=== PATIENT | female | born 1990 | race Hispanic/Latino ===

== ENCOUNTER 2017-12-07 19:34 | Emergency (ER) | payer OTHER, SELFPAY ==
[2017-12-07] MEDS ORDERED: Ketorolac Tromethamine 30 MG/ML VIAL ONE (21:15)
== END 2017-12-07 21:48 | disposition home or self-care (01) ==
LOC: ERS 19:34
DX: S16.1XXA Strain of muscle, fascia and tendon at neck level, initial encounter (principal); J06.9 Acute upper respiratory infection, unspecified; E66.9 Obesity, unspecified; F32.9 Major depressive disorder, single episode, unspecified; Z79.899 Other long term (current) drug therapy; X58.XXXA Exposure to other specified factors, initial encounter
CPT/HCPCS: 87081; 87430; 87804; 96372; J1885

== ENCOUNTER 2018-09-02 20:33 | Emergency (ER) | payer SELFPAY ==
[2018-09-02] MEDS ORDERED: predniSONE 20 MG TAB ONE (21:50)
== END 2018-09-02 22:00 | disposition home or self-care (01) ==
LOC: ERS 20:33
DX: T78.40XA Allergy, unspecified, initial encounter (principal); F32.9 Major depressive disorder, single episode, unspecified; Z79.01 Long term (current) use of anticoagulants
CPT/HCPCS: 99283; J7506

== ENCOUNTER 2018-12-07 15:45 | Emergency (ER) | payer SELFPAY ==
[~2018-12-07 15:45] MED LIST: ISOVUE-370 76%-LOCM 1 ML ONE
[2018-12-07 16:27] LABS: #Basophils 0.1 thou/uL (0.0-0.2); #Eosinphils 0.3 thou/uL (0.0-0.7); #Lymphocytes 2.9 thou/uL (1.20-3.40); #Monocytes 0.9 thou/uL (0.11-0.59); #Neutrophils 9.1 thou/uL (1.40-6.50); %Basophils 0.9 % (0.0-1.0); %Eosinophils 2.4 % (0.0-10.0); %Lymphocytes 21.5 % (21.0-51.0); %Monocytes 6.9 % (0.0-10.0); %Neutrophils 68.3 % (42.0-75.0); Hemoglobin 15.7 g/dL (12.0-16.0); Mean Corpuscular HGB CONC 33.5 g/dL (32.0-36.0); Mean Corpuscular Hemoglobin 29.6 pg (27.0-31.0); Mean Corpuscular Volume 88.3 fL (78.0-98.0); Mean Platelet Volume 7.8 fL (7.4-10.4); Platelet Count 271 thou/uL (130-400); RBC Distribution Width 12.2 % (11.5-14.5); Red Blood Cell (RBC) Count 5.32 mill/uL (4.20-5.40); White Blood Cell (WBC) Count 13.3 thou/uL (4.8-10.8)
[2018-12-07 16:48] LABS: ALT (SGPT) 36 U/L (8-55); AST (SGOT) 19 U/L (5-34); Albumin 4.3 g/dL (3.5-5.0); Alkaline Phosphatase 72 U/L (40-150); Anion Gap 15 mmol/L (10-20); BUN (Urea Nitrogen) 14 mg/dL (7.0-18.7); Bilirubin, Total 0.4 mg/dL (0.2-1.2); Calc. Creatinine Clearance 0 mL/min (70-130); Calcium 10.4 mg/dL (7.8-10.44); Carbon Dioxide 23 mmol/L (22-29); Chloride 102 mmol/L (98-107); Estimated GFR-MDRD 86; Globulin 3.5 g/dL (2.4-3.5); Glucose 91 mg/dL (70-105); Lipase 6 U/L (8-78); Potassium 3.7 mmol/L (3.5-5.1); Protein, Total 7.8 g/dL (6.0-8.3); Sodium 136 mmol/L (136-145)
[2018-12-07 20:07] LABS: Bilirubin Negative (Negative); Blood, Urine Negative (Negative); Clarity CLEAR (Clear); Glucose, Urine (Dipstick) Negative (Negative); Leukocyte Negative (Negative); Nitrite Negative (Negative); Protein, Urine (Dipstick) Negative (Neg-Trace); Specific Gravity, Urine 1.016 (1.002-1.036); Urobilinogen 0.2 mg/dL (0.2-1.0)
[2018-12-07 20:09] LABS: Pregnancy Test - Urine (BHCG) Negative (Negative); Pregu Control Background? CLEAR/WHITE (CLR/WHITE); Pregu Control Bar Appear? YES (CONTROL BAR); Specific Gravity 1.016 (1.002-1.036)
--- NOTE | 2018-12-07 21:06 | CT ---
CT ABDOMEN WITH CONTRAST CT PELVIS WITH CONTRAST: DATE: 12/07/2018 HISTORY: 28-year-old female with right lower quadrant abdominal pain TECHNIQUE: IV injection of iodinated contrast media: Administered Oral contrast media:Not administered FINDINGS: Liver: No focal solid mass. Spleen: No splenomegaly.. Pancreas: No mass or surrounding fat stranding.. Adrenals: No mass.. Kidneys: No hydronephrosis or enhancement abnormalities.. Ureters: No dilation. Bladder: No pathology identified. Abdominal aorta: No aneurysm. Small bowel: No dilation. Colon: No adjacent fat stranding. Appendix: No dilation or adjacent fat stranding.. Free air: None. Free fluid: None. There is a 3.3 x 2.8 x 3 cm heterogeneously low attenuation lesion in the right adnexa of the pelvic cavity. IMPRESSION: 1) 3 cm right adnexal lesion. Perhaps this is a complicated (such as hemorrhagic) right ovarian cyst. Further evaluation with pelvic and transvaginal ultrasound may be useful. However, there is a possible that that study could be limited because of body habitus. 2) normal appendix
[2018-12-07] MEDS ORDERED: HYDROcodone/Acetaminophen 5/325 mg Tablet ONE (21:25)
[2018-12-07] MEDS ORDERED: Ondansetron ODT 8 MG TAB ONE (21:25)
== END 2018-12-07 21:31 | disposition home or self-care (01) ==
LOC: ERS 15:45
DX: N83.201 Unspecified ovarian cyst, right side (principal); F32.9 Major depressive disorder, single episode, unspecified; F41.9 Anxiety disorder, unspecified; Z79.899 Other long term (current) drug therapy
CPT/HCPCS: 36415; 74177; 80053; 81003; 81025; 83690; 85025; Q9966

== ENCOUNTER 2019-07-17 09:47 | Emergency (ER) | payer BC, SELFPAY | END 2019-07-17 10:33 | disposition home or self-care (01) | LOC: ERS 09:47 | DX: J06.9 Acute upper respiratory infection, unspecified (principal); H66.91 Otitis media, unspecified, right ear; F32.9 Major depressive disorder, single episode, unspecified | CPT/HCPCS: 99282 ==

== ENCOUNTER 2020-10-15 22:05 | Emergency (ER) | payer BC, SELFPAY ==
[2020-10-15 22:51] LABS: #Basophils 0.1 thou/uL (0.0-0.2); #Eosinphils 0.2 thou/uL (0.0-0.7); #Lymphocytes 2.7 thou/uL (1.20-3.40); #Monocytes 0.7 thou/uL (0.11-0.59); #Neutrophils 7.3 thou/uL (1.40-6.50); %Basophils 0.9 % (0.0-1.0); %Eosinophils 1.5 % (0.0-10.0); %Lymphocytes 24.8 % (21.0-51.0); %Monocytes 6.4 % (0.0-10.0); %Neutrophils 66.3 % (42.0-75.0); Hemoglobin 15.2 g/dL (12.0-16.0); Mean Corpuscular HGB CONC 31.6 g/dL (32.0-36.0); Mean Corpuscular Volume 88.5 fL (78.0-98.0); Mean Platelet Volume 8.1 fL (7.4-10.4); Platelet Count 216 thou/uL (130-400); RBC Distribution Width 11.9 % (11.5-14.5); Red Blood Cell (RBC) Count 5.42 mill/uL (4.20-5.40); White Blood Cell (WBC) Count 10.9 thou/uL (4.8-10.8)
[2020-10-15 23:20] LABS: ALT (SGPT) 25 U/L (8-55); AST (SGOT) 17 U/L (5-34); Albumin 3.9 g/dL (3.5-5.0); Alkaline Phosphatase 63 U/L (40-110); Anion Gap 13 mmol/L (10-20); Bilirubin, Total 0.3 mg/dL (0.2-1.2); Calc. Creatinine Clearance 0 mL/min (70-130); Calcium 9.4 mg/dL (7.8-10.44); Carbon Dioxide 23 mmol/L (22-29); Chloride 107 mmol/L (98-107); Globulin 3.5 g/dL (2.4-3.5); Glucose 164 mg/dL (70-105); Potassium 3.9 mmol/L (3.5-5.1); Protein, Total 7.4 g/dL (6.0-8.3); Sodium 139 mmol/L (136-145)
[2020-10-15 23:50] LABS: BUN (Urea Nitrogen) 13 mg/dL (7.0-18.7)
[2020-10-16] MEDS ORDERED: Ketorolac Tromethamine 30 MG/ML VIAL ONE (00:28)
[2020-10-16] MEDS ORDERED: Metoclopramide HCl 10 MG TAB ONE (00:28)
== END 2020-10-16 00:54 | disposition home or self-care (01) ==
LOC: ERS 22:05
DX: R51.9 Headache, unspecified (principal); R07.9 Chest pain, unspecified
CPT/HCPCS: 36415; 71045; 80053; 84484; 85025; 93005; 96372; J1885

== ENCOUNTER 2021-03-23 21:43 | Emergency (ER) | payer MEDICAID, SELFPAY ==
[~2021-03-23 21:43] MED LIST changes: -ISOVUE-370 76%-LOCM 1 ML ONE; +Iopamidol-370 76% 500 ML 1 ML ONE
[2021-03-23 22:10] LABS: #Basophils 0.1 thou/uL (0.0-0.2); #Eosinphils 0.2 thou/uL (0.0-0.7); #Lymphocytes 2.6 thou/uL (1.20-3.40); #Monocytes 0.8 thou/uL (0.11-0.59); #Neutrophils 5.4 thou/uL (1.40-6.50); %Basophils 0.8 % (0.0-1.0); %Eosinophils 1.9 % (0.0-10.0); %Lymphocytes 28.8 % (21.0-51.0); %Neutrophils 59.7 % (42.0-75.0); Hemoglobin 13.9 g/dL (12.0-16.0); Mean Corpuscular HGB CONC 33.7 g/dL (32.0-36.0); Mean Corpuscular Hemoglobin 29.6 pg (27.0-31.0); Mean Corpuscular Volume 87.8 fL (78.0-98.0); Mean Platelet Volume 7.4 fL (7.4-10.4); Platelet Count 240 thou/uL (130-400); RBC Distribution Width 11.8 % (11.5-14.5); Red Blood Cell (RBC) Count 4.71 mill/uL (4.20-5.40)
[2021-03-23 22:34] LABS: ALT (SGPT) 22 U/L (8-55); AST (SGOT) 16 U/L (5-34); Albumin 3.7 g/dL (3.5-5.0); Alkaline Phosphatase 56 U/L (40-110); Anion Gap 14 mmol/L (10-20); BUN (Urea Nitrogen) 16 mg/dL (7.0-18.7); Bilirubin, Total 0.3 mg/dL (0.2-1.2); Calc. Creatinine Clearance 0 mL/min (70-130); Calcium 9.2 mg/dL (7.8-10.44); Carbon Dioxide 18 mmol/L (22-29); Chloride 111 mmol/L (98-107); Globulin 2.8 g/dL (2.4-3.5); Glucose 120 mg/dL (70-105); Potassium 3.8 mmol/L (3.5-5.1); Protein, Total 6.5 g/dL (6.0-8.3); Sodium 139 mmol/L (136-145)
[2021-03-23 22:50] LABS: BHCG - Serum Negative (NEGATIVE); Pregs Control Background? CLEAR/WHITE (CLR/WHITE); Pregs Control Bar Appear? YES (CONTROL BAR)
[2021-03-24 01:24] LABS: Troponin I Less than 0.010 ng/mL (< 0.028)
== END 2021-03-24 01:49 | disposition home or self-care (01) ==
LOC: ERS 21:43
DX: R07.9 Chest pain, unspecified (principal); R60.0 Localized edema
CPT/HCPCS: 36415; 71045; 71275; 80053; 84484; 84703; 85025; 93005; Q9967

== ENCOUNTER 2024-06-01 20:29 | Emergency (ER) | payer OTHER ==
[2024-06-01] MEDS ORDERED: Ketorolac Tromethamine 30 MG (1 mL) VIAL ONE (21:31)
== END 2024-06-01 22:03 | disposition home or self-care (01) ==
LOC: ERS 20:29
DX: J06.9 Acute upper respiratory infection, unspecified (principal); B97.89 Other viral agents as the cause of diseases classified elsewhere
CPT/HCPCS: 87081; 87428; 87430; 96372; 99283; J1885